=== PATIENT | male | born 1975 | race Caucasian/White ===

== ENCOUNTER 2016-11-29 15:06 | Emergency (ER) | payer SELFPAY ==
[~2016-11-29] VITALS: Ht 188 cm; Wt 92.5 kg
[~2016-11-29 15:06] MED LIST: ALBU8I INH; LISI5 PO; MELO15 PO; METO25 PO; PROM6.257 PO; ZITH250T PO
[2016-11-29 15:12] VITALS: BP 150/107; PULSE 99; RESP 16; TEMP 98.1; O2SAT 97
[2016-11-29] MEDS ORDERED: TUMS500C CHEW (15:21)
--- NOTE | 2016-11-29 15:31 | PD ---
HPI Chief Complaint: Laceration/Skin Injury Time Seen by Provider: 15:31 Travel History International Travel<30 days: No Contact w/Intl Traveler<30days: No Traveled to known affect area: No History of Present Illness HPI 41-year-old male presents the emergency department with laceration to the left dorsal proximal pinky. 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 He has no numbness, tingling, or loss of function. He is a 1 cm laceration to the dorsal fifth digit of the left hand. Tetanus is up-to-date. Pain is minimal. He is allergic to Prilosec. PFSH Past Medical History Depression: Yes Heart Rhythm Problems: Yes (MILD HEART ATTACK 2008) Cardiovascular Problems: Yes Chest Pain: Yes Diminished Hearing: No GERD: Yes (TAKES TUMS) Hypertension: Yes Myocardial Infarction: Yes Tetanus Vaccination: < 5 Years Influenza Vaccination: No Past Surgical History Other Surgery: Yes (SPLIT EYELID & LEFT THUMB SURG) Social History Alcohol Use: Yes (2 BEERS / MONTH) Tobacco Use: Yes (1/2ppd) Substance Use: No Allergies-Medications (Allergen,Severity, Reaction): Coded Allergies: Prilosec (Verified Allergy, Severe, Anaphylaxis, 11/29/16) Reported Meds & Prescriptions Reported Meds & Active Scripts Active Reported Tums (Calcium Carbonate (Antacid)) 500 Mg Chew 500 Mg CHEW PRN Review of Systems Except as stated in HPI: all other systems reviewed are Neg General / Constitutional: No: Fever Eyes: No: Visual changes HENT: No: Headaches Cardiovascular: No: Chest Pain or Discomfort Respiratory: No: Shortness of Breath Gastrointestinal: No: Abdominal Pain Genitourinary: No: Dysuria Musculoskeletal: No: Pain Skin: No Rash Neurologic: No: Weakness Psychiatric: No: Depression Endocrine: No: Polydipsia Hematologic/Lymphatic: No: Easy Bruising Physical Exam Narrative GENERAL: Patient is in no acute distress. SKIN: Warm and dry. Normal color. Normal turgor. Patient is 1 cm full- thickness laceration to the dorsum of the left fifth proximal digit. HEAD: Atraumatic. Normocephalic. EYES: Pupils equal and round. No scleral icterus. No injection or drainage. ENT: No nasal bleeding or discharge. Mucous membranes pink and moist. Pharynx is normal. NECK: Trachea midline. Supple and nontender. CARDIOVASCULAR: Regular rate and rhythm. RESPIRATORY: No accessory muscle use. Clear to auscultation. Breath sounds equal bilaterally. MUSCULOSKELETAL: Extremities without clubbing, cyanosis, or edema. No obvious deformities. Full range of motion and strength. NEUROLOGICAL: Awake and alert. No obvious cranial nerve deficits. Motor grossly within normal limits. Five out of 5 muscle strength in the arms and legs. Normal speech. PSYCHIATRIC: Appropriate mood and affect; insight and judgment normal. Data Data Last Documented VS Vital Signs Date Time Temp Pulse Resp B/P Pulse Ox O2 Delivery O2 Flow Rate FiO2 11/29/16 15:12 98.1 99 16 150/107 97 Orders Lidocaine 1% Inj (50 Ml) (Xylocaine 1% I (11/29/16 16:00) [facility] Medical Decision Making Medical Screen Exam Complete: Yes Emergency Medical Condition: Yes Differential Diagnosis Laceration. Need for sutures. Accidental cut. Narrative Course Patient is medically stable at time of exam. Sutures were placed. See procedure note. Wound instructions were discussed with the patient. Sutures should remain in place for 7 days. Patient is placed on Keflex 500 3 times a day 5 days. Patient follow-up as needed. Procedures Procedure Narrative LACERATION LOCATION: Left proximal fifth digit of the hand LENGTH: 1 cm NUMBER OF STITCHES/BRIONNA: 2 interrupted vertical mattress, and 2 simple interrupted REPAIR: The area of the laceration was prepped with Betadine and sterilely draped. The laceration was infiltrated with 3 mL lidocaine. The wound was copiously irrigated and explored without evidence of foreign body, tendon injury or neurovascular injury. The wound was closed using 5-0 Prolene. This was a single layer repair. A sterile dressing was applied. The patient was advised to keep the dressing clean and dry. Patient tolerated the procedure well. Diagnosis Primary Impression: Finger laceration Qualified Code: S61.219A - Finger laceration, initial encounter Referrals: Primary Care Physician Patient Instructions: General Instructions Additional Instructions: Wound instructions were discussed with the patient. Sutures should remain in place for 7 days. Patient is placed on Keflex 500 3 times a day 5 days. Patient follow-up as needed. Med/Other Pt SpecificInfo: Wound Care Disposition: DISCHARGE HOME Condition: Stable Brandon Aquino November 29, 2016 15:31
[2016-11-29] MEDS ORDERED: LIDOCAINE HCL 1% 20 ML VIAL INFIL ONE (15:45)
[2016-11-29] MEDS ORDERED: LIDOCAINE HCL 1% 30 ML VIAL INFIL ONE (15:45)
[2016-11-29] MEDS ORDERED: LIDOCAINE HCL 1% 50 ML VIAL INFIL ONE (16:00)
[2016-11-29] MEDS ORDERED: CEPH-460 PO (16:17)
== END 2016-11-29 16:22 | disposition home or self-care (01) ==
LOC: PHEFT 15:06
DX: S61.217A Laceration without foreign body of left little finger without damage to nail, initial encounter (principal); W45.8XXA Other foreign body or object entering through skin, initial encounter; Y93.89 Activity, other specified
CPT/HCPCS: 12001